=== PATIENT | female | born 1990 | race Caucasian/White ===

== ENCOUNTER 2024-12-06 10:11 | Outpatient (REF) | payer MEDICAID, SELFPAY ==
--- OUTSIDE RECORDS SUMMARY | 2024-12-06 11:25 | XMS_ITS | Encounter Summary ---
Author Organization [employer] Address [address] [place] [address] Care Team Providers Care Rotary Drier Name Role Phone Elvi Bal MD Primary Care Provider [phone] Encounter Details Date Type Department Care Team (Latest Contact Info) Description 12/06/2024 Travel Social History Tobacco Use Types Packs/Day Years Used Date Smoking Tobacco: Never Passive Smoke Exposure: Never Smokeless Tobacco: Never Depression Answer Date Recorded Patient Health Questionnaire-9 Score 8 12/06/2024 Patient Health Questionnaire-9 Score 8 12/06/2024 Last PHQ-9: Questionnaire Data Not on file 0 12/06/2024 Housing Stability Answer Date Recorded What is your housing situation today? I have bella josey 12/06/[address] you li ve. Do you have problems with any of the following? None of the above 12/06/2024 Food Insecurity Answer Date Recorded Within the past 12 months, y ou worried that your food would run out before you got money to buy more: Sometimes True 2024 Within the past 12 months,th e food you bought just didn't last and you didn't have enough money to get more: Sometimes True 12/06/2024 Transportation Answer Date Recorded In the past 12 months, has l ack of transportation kept you from medical appts, meetings, work or from getting things needed for daily living? Yes, it has kept me from non-medical meetings, work, or getting things that I need 12/06/2024 Utilities Answer Date Recorded In the past 12 months, has t he electric, gas, oil or water company threatened to shut off services in your home? Yes 12/06/2024 Depression Answer Date Recorded Patient Health Questionnaire-2 Score 2 12/06/2024 Comments Unknown Sex and Gender Information Value Date Recorded Sex Assigned at Female 05/09/2024 2:37 PM EDT Legal Sex Female 12:33 PM EDT Gender Identity Female 05/09/2024 2:37 PM EDT Sexual Orientation Straight 05/09/2024 2: 37 PM EDT documented as of this encounter Plan of Treatment Not on file documented as of this encounter Visit Diagnoses Not on filedocumented in this encounter Additional Health Concerns Assessment Noted Time PHQ-9 Depression Total Score: 8 12/07/19 9:39 AM EST documented as of this encounter Care Teams Rotary Drier Relationship Specialty Start Date End Date Elvi Bal MD [address] [place] [phone] PCP - General Family Medicine 12/06/24 documented as of this encounter
--- OUTSIDE RECORDS SUMMARY | 2024-12-06 11:25 | XMS_ITS | Encounter Summary ---
Author Organization [employer] Address [address] [facility] 7t [place] [address] Care Team Providers Care Assistant Professor Of Education Name Role Phone Unavailable Primary Care Provider Unavailabl e Reason for Visit * Reason Comments Pre-visit Planning SDOH unable to reach LVM Encounter Details Date Type Department Care Team ([facility] Contact Info) Description 11/29/2024 Patient Outreach [facility] [address] [place] [address] Elvi Bal MD [address] [place] [phone] Pre-visit Planning (SDOH unable to reach LVM ) Social History Tobacco Use Types Packs/Day Years Used Date Smoking Tobacco: Never Passive Smoke Exposure: Never Smokeless Tobacco: Never Comments Unknown Sex and Gender Information Value Date Recorded Sex Assigned at Female 05/09/2024 2:37 PM EDT Legal Sex Female 12:33 PM EDT Gender Identity Female 05/09/2024 2:37 PM EDT Sexual Orientation Straight 05/09/2024 2: 37 PM EDT documented as of this encounter Progress Notes * Adrianna Hart - 11/29/2024 9:38 AM EST CC Adrianna Novak placed outbound call to patient to complete pre-visit planning. No answer at this time. Patient name and were not confirmed. CC left voicemail requesting return call. Direct contactinformation provided. documented in this encounter Plan of Treatment Not on file documented as of this encounter Visit Diagnoses Not on filedocumented in this encounter
--- OUTSIDE RECORDS SUMMARY | 2024-12-06 11:25 | XMS_ITS | Encounter Summary ---
Author Organization [employer] Address [address] [facility] 7 [place] [address] Care Team Providers Care Biomedical Service Engineer Name Role Phone Elvi Bal MD Primary Care Provider Reason for Visit * Reason Comments New Patient Encounter Details Date Type Department Care Team (Latest Contact Info) Description 12/06/2024 9:00 AM EST Office Visit [facility] MEDICINE [address] [place] [address] [phone] Elvi Bal MD [address] [place] [address] [phone] Rheumatoid arthritis, involving unspecified site, unspecified whether rheumatoid factor present (CMS/HCC) (Primary Dx); Mild intermittent asthma without complication; Family planning; Screening examination for STI; Bipolar 2 disorder (CMS/HCC); Attention deficit hyperactivity disorder (ADHD), predominantly hyperactive type; PTSD (post-traumatic stress disorder) Social History Tobacco Use Types Packs/Day Years Used Date Smoking Tobacco: Never Passive Smoke Exposure: Never Smokeless Tobacco: Never Tobacco Cessation:Counseling Given: Not Answered Depression Answer Date Recorded Patient Health Questionnaire-9 Score 8 12/06/2024 Patient Health Questionnaire-9 Score 8 12/06/2024 Last PHQ-9: Questionnaire Data Not on file 0 12/06/2024 Housing Stability Answer Date Recorded What is your housing situation today? I have bella dwoling 12/06/[address] you li [...] PM EDT documented as of this encounter Last Filed Vital Signs Vital Sign Reading Time Taken Comments Blood Pressure 128/76 12/06/2024 9:07 AM EST Pulse 72 12/06/2024 9:07 AM EST Temperature 36.4 ??C (97.6 ??F) 12/06/2024 9:07 AM ES T Respiratory Rate 18 12/06/2024 9:07 AM EST Oxygen Saturation 99% 12/06/2024 9:07 AM EST Inhaled Oxygen Concentration - - Weight 87.6 kg (193 lb 3.2 oz) 12/06/2024 9:07 A M EST Height 167.6 cm (5' 6 ) 12/06/2024 9:07 AM EST Body Mass Index 31.18 12/06/2024 9:07 AM EST documented in this encounter Plan of Treatment Scheduled Orders Name Type Priority Associated Diagnoses Orde r Schedule Vitamin B12/Folate, Serum Panel Lab Routine Rheumatoid arthritis, involving unspecified site, unspecified whether rheumatoid factor present (CMS/HCC) Expected: 12/06/2024, Expires: 12/06/2025 CBC auto differential Lab Routine Rheumatoid arthritis, involving unspecified site, unspecified whether rheumatoid factor present (CMS/HCC) Expected: 12/06/2024 (Approximate), Expires: 12/06/2025 Comprehensive Metabolic Panel Lab Routine Rheumatoid arthritis, involving unspecified site, unspecified whether rheumatoid factor present ([facility]/HCC) Expected: 12/06/2024 (Approximate), Expires: 12/06/2025 TSH W/Reflex to FT4 Lab Routine Rheumatoid arthritis, involving unspecified site, unspecified whether rheumatoid factor present (CMS/HCC) Expected: 12/06/2024 (Approximate), Expires: 12/06/2025 Sed Rate by Modified [place] Lab Routine Rheumatoid arthritis, involving unspecified site, unspecified whether rheumatoid factor present ([facility]) Expected: 12/06/2024, Expires: 12/06/2025 C-reactive Protein Lab Routine Rheumatoid arthritis, involving unspecified site, unspecified whether rheumatoid factor present ([facility]) Expected: 12/06/2024 (Approximate), Expires: 12/06/2025 Rheumatoid Factor Lab Routine Rheumatoid arthritis, involving unspecified site, unspecified whether rheumatoid factor present ([facility]) Expected: 12/06/2024, Expires: 12/06/2025 HIV-1/2 Antigen and Antibodies, Fourth Generation, with Reflexes Lab Routine Screening examination for STI Expected: 12/06/2024 (Approximate), Expires: 12/06/2025 Hepatitis C Antibody with Reflex to HCV, RNA, Quantitative, Real-Time PCR Lab Routine Screening examination for STI Expected: 12/06/2024, Expires: 12/06/2025 RPR (Monitor) with Reflex to??Titer Lab Routine Screening examination for STI Expected: 12/06/2024, Expires: 12/06/2025 Chlamydia/N. Gonorrhoeae RNA, TMA, Urogenitial Microbiology Routine Screening examination for STI Expected: 12/06/2024 (Approximate), Expires: 12/06/2025 documented as of this encounter Visit Diagnoses Diagnosis Rheumatoid arthritis, involving unspecified site, unspecified whether rheumatoid factor present ([facility])- Primary Mild intermittent asthma without complication Family planning Other general counseling and advice for contraceptive management Screening examination for STI Bipolar 2 disorder ([facility]) Other bipolar disorders Attention deficit hyperactivity disorder (ADHD), predominantly hyperactive type PTSD (post-traumatic stress disorder) Posttraumatic stress disorder documented in this encounter Additional Health Concerns Assessment Noted Time PHQ-9 Depression Total Score: 8 12/07/19 25 9:39 AM EST documented as of this encounter Care Teams Biomedical Service Engineer Relationship Specialty Start Date End Date Elvi Bal MD [address] [place] [address] PCP - General Family Medicine 12/06/24 documented as of this encounter
--- OUTSIDE RECORDS SUMMARY | 2024-12-06 11:25 | XMS_ITS | Encounter Summary ---
Author Organization [employer] Address [address] [facility] 7t [place] [address] Care Team Providers Care Still Tender Name Role Phone Unavailable Primary Care Provider Unavailabl e Reason for Visit * Reason Onset Date Comments New patient appt. 11/26/2024 Encounter Details Date Type Department Care Team ([facility] st Contact Info) Description 11/26/2024 Telephone [facility] MEDICINE [address] [place], [place] [phone] Owen Colunga MD [address] [place], [place] [phone] New patient appt. Social History Tobacco Use Types Packs/Day Years Used Date Smoking Tobacco: Never Passive Smoke Exposure: Never Smokeless Tobacco: Never Comments Unknown Sex and Gender Information Value Date Recorded Sex Assigned at Female 05/09/2024 2:37 PM EDT Legal Sex Female 12:33 PM EDT Gender Identity Female 05/09/2024 2:37 PM EDT Sexual Orientation Straight 05/09/2024 2: 37 PM EDT documented as of this encounter Miscellaneous Notes * Telephone Encounter - Elizabeth Tello - 11/26/2024 11:58 AM EST ( 2x ) Outgoing call to pt to book New Patient appt. No answer. Left Message. * Telephone Encounter - Elizabeth Tello - 11/26/2024 11:56 AM EST ----- Message from Nate King MD sent at 11/26/2024 11:20 AM EST ----- Please schedule TELEPHOTO ENGINEER PCP mary't. Thanks documented in this encounter Plan of Treatment Not on file documented as of this encounter Visit Diagnoses Not on filedocumented in this encounter
--- OUTSIDE RECORDS SUMMARY | 2024-12-06 11:25 | XMS_ITS | Encounter Summary ---
Author Organization [employer] Address [address] [facility] 7t [place] [address] Care Team Providers Care Financial Services Officer Name Role Phone Elvi Bal MD Primary Care Provider [phone] Reason for Visit * Reason Onset Date Comments New Patient 07/18/2023 Encounter Details Date Type Department Care Team ([facility] st Contact Info) Description 07/18/2023 Telephone [facility] MEDICINE [address] [place], [place] [phone] Owen Colunga MD [address] [place] [address] New Patient Social History Tobacco Use Types Packs/Day Years Used Date Smoking Tobacco: Never Assessed Comments Unknown Sex and Gender Information Value Date Recorded Sex Assigned at Female 05/09/2024 2:37 PM EDT Legal Sex Female 12:33 PM EDT Gender Identity Female 05/09/2024 2:37 PM EDT Sexual Orientation Straight 05/09/2024 2: 37 PM EDT documented as of this encounter Miscellaneous Notes * Telephone Encounter - Lowell Hurd - 07/18/2023 12:36 PM EDT Pt has been transfer over to wait list for TOOL 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 EFFECTIVE SINCE 07/18/2023 documented in this encounter Plan of Treatment Not on file documented as of this encounter Visit Diagnoses Not on filedocumented in this encounter Care Teams Financial Services Officer Relationship Specialty Start Date End Date Elvi Bal MD [address] [place] [address] PCP - General Family Medicine 12/06/24 documented as of this encounter
--- OUTSIDE RECORDS SUMMARY | 2024-12-06 11:25 | XMS_ITS | Clinical Summary ---
Author Organization [employer] Address [address] [facility] 7t [place] [address] Care Team Providers Care Solar Installation Crew Supervisor Name Role Phone Elvi Bal MD Primary Care Provider [phone] Allergies Active Allergy Reactions Criticality Noted Date Comments Lactose Medium 01/08/2016 Other reaction(s): GI Intolerance Other reaction(s): GI Intolerance GI complaints and sometimes vomiting Medications * This document contains information received from the source organization and may not represent a complete record from that organization. fluticasone-salm eterol (Advair) 115-21 MCG/ACT inhaler Inhale 2 puffs in the morning and at bedtime. Rinse mouth with water after use to reduce aftertaste and incidence of candidiasis. Do not swallow. 12 g 2 05/09/20 24 2024 Active ibuprofen 800 MG tablet Take 1 tablet (800 mg) by mouth if needed in the morning and at bedtime for moderate pain for up to 10 days. 20 tablet 11/26/19 25 2024 Active predniSONE (Deltasone) 5 MG tablet TAKE 2 TABLETS BY MOUTH DAILY WITH BREAKFAST FOR 7 DAYS, THEN TAKE 1 TABLET DAILY FOR 7 DAYS, THEN TAKE 1/2 TABLET DAILY FOR 7 DAYS 11/26/19 Active Vit-Fe Fumarate-FA ( Vitamins) 28-0.8 MG tabletIndication s:Family Planning Take 1 tablet by mouth Once per day. 90 tablet 3 12/07/19 25 2025 Active albuterol 108 (90 Base) MCG/ACT inhaler Inhale 2 puffs every 4 (four) hours if needed for wheezing or shortness of breath. 18 g 3 12/07/19 25 2025 Active lamoTRIgine (LaMICtal) 100 MG tablet Take 1 tablet (100 mg) by mouth Once per day. 90 tablet 3 12/07/19 25 2025 Active amitriptyline (Elavil) 25 MG tablet Take 1 tablet (25 mg) by mouth if needed at bedtime for sleep. 90 tablet 3 12/07/19 25 Active amphetamine-dext roamphetamine (Adderall) 5 MG tabletIndication s:Attention deficit hyperactivity disorder (ADHD), predominantly hyperactive type Take 1 tablet (5 mg) by mouth 2 times daily. 60 tablet 12/07/19 25 Active clonazePAM (KlonoPIN) 0.5 MG tabletIndication s:PTSD (post-traumatic stress disorder) Take 1 tablet (0.5 mg) by mouth 2 times daily. 60 tablet 12/07/19 25 Active albuterol 108 (90 Base) MCG/ACT inhaler Inhale 2 puffs every 4 (four) hours if needed for wheezing or shortness of breath. 18 g 1 05/09/20 24 2024 Discontinued(R eorder (will not trigger notification to Pharmacy)) lamoTRIgine (LaMICtal) 25 MG tablet Take by mouth. 2024 Discontinued clonazePAM (KlonoPIN) 0.5 MG tablet Take 0.5 mg by mouth 2 times daily. 2024 Discontinued(R eorder (will not trigger notification to Pharmacy)) amitriptyline (Elavil) 10 MG tablet Take by mouth at bedtime. 2024 Discontinued(T herapy completed) amphetamine-dext roamphetamine (Adderall) 5 MG tablet Take 5 mg by mouth 2 times daily. 2024 Discontinued(R eorder (will not trigger notification to Pharmacy)) Vit-Fe Fumarate-FA ( Vitamins) 28-0.8 MG tabletIndication s:Family Planning Take 1 tablet by mouth Once per day. 90 tablet 3 07/01/20 24 2024 Discontinued(R eorder (will not trigger notification to Pharmacy)) predniSONE 5 MG tablet delayed-release Take 2 tablets (10 mg) by mouth with breakfast for 7 days, THEN 1 tablet (5 mg) with breakfast for 7 days, THEN 0.5 tablets (2.5 mg) with breakfast for 7 days. 25 tablet 11/26/19 25 2024 Discontinued(T herapy completed) amitriptyline (Elavil) 25 MG tablet Take 25 mg by mouth if needed at bedtime. 10/04/19 25 2024 Discontinued(R eorder (will not trigger notification to Pharmacy)) Active Problems Problem Noted Date Diagnosed Date Anxiety 12/06/2024 Bipolar disorder with moderate depression 2024 Skin infection 10/15/2024 Assessment & Plan (10/15/2024 2:57 PM EST): -Rx Doxycycline for likely early cellulitis and secondary benefit of ceoverage for possible atypical PNA. -Bactroban for possible impetigo. -ER precautions discussed. IBS (irritable bowel syndrome) 05/09/2024 Lactose intolerance 05/09/2024 Seronegative rheumatoid arthritis 05/09/2024 Varicose veins of both lower extremities 024 Bipolar 2 disorder 05/09/2024 PTSD (post-traumatic stress disorder) 05/09/2024 Moderate persistent asthma without complication 05/09/2024 Raynaud's phenomenon 05/09/2024 Vaccine reaction 12/08/2021 Overview (12/06/2024): Local reaction to PPSV23 vaccination. No angioedema or systemic symptoms. Ganglion cyst 05/14/2020 Kidney cysts 11/08/2019 Inflammatory arthritis 06/21/2019 Pain in joints 03/12/2019 Overview (12/06/2024): Exam more c/w myofacial pain, w/ diffuse non-articular tenderness greatest through the back and at GTB/ITB. 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 Varicose veins of both legs with edema 9 Overview (12/06/2024): H/o, s/p multiple vein stripping Continued pain in legs, worsening over the day Likely contribution to other chronic MSK pain Raynaud's disease without gangrene 01/09/2019 Overview (12/06/2024): Likely primary raynauds w/ age of onset; agree w/ Dr Mejia for low lifetime risk for other associated CTD. Exam today noted for moderate nailbed capillarization. Periodic headache syndrome, not intractable 12/31 Venous insufficiency 08/14/2018 Gestational diabetes mellitus (GDM) 07/14/2017 Moderate asthma 02/22/2016 Overview (12/06/2024): No admissions H/O steroids during winter Encounters * This document contains information received from the source organization and may not represent a complete record from that organization. Date Type Department Care Team Description 12/06/2024 9:00 AM EST Office Visit [facility] MEDICINE [address] [place] [phone] Elvi Bal MD Rheumatoid arthritis, involving unspecified site, unspecified whether rheumatoid factor present (CMS/HCC) (Primary Dx); Mild intermittent asthma without complication; Family planning; Screening examination for STI; Bipolar 2 disorder (CMS/HCC); Attention deficit hyperactivity disorder (ADHD), predominantly hyperactive type; PTSD (post-traumatic stress disorder) 12/06/2024 Travel 11/29/2024 Patient Outreach [facility] & PEDS [address] [place], [place] [phone] Elvi Bal MD Pre-visit Planning (SDOH unable to reach [facility] ) 11/26/2024 10:20 AM EST Office Visit [facility] WALK[facility]IN CENTER [address] [place] [phone] Nate King MD Seronegative rheumatoid arthritis (CMS/HCC) (Primary Dx); Bipolar 2 disorder (CMS/HCC); PTSD (post-traumatic stress disorder) 11/26/2024 Telephone [facility] MEDICINE [address] [place] [phone] Owen Colunga MD New patient appt. 10/15/2024 2:00 PM EST Office Visit [facility] [address] [place] [phone] Mattie Peterson MD Skin infection (Primary Dx); Cough in adult 10/15/2024 Travel 10/03/2024 Telephone [facility] MEDICINE [address] [place] [address] Owen Colunga MD 09/23/2024 Telephone [facility] MEDICINE [address] [place], [place] [address] Owen Colunga MD from Last 3 Months Immunizations Name Administration Dates Next Due DTaP 11/06/2017 INFLUENZA INJECTABLE QUADRIV ALANT CCIIV4 MDCK Multi-dose vial 12/07/2021 Influenza Injectable Quadriv alant Preservative Free IIV4 MDCK 06/14/2019 Influenza injectable quadrivalent preservative f ree 06/20/2018 Influenza, Unspecified 08/04/2016,10/17/2012 Pneumococcal Polysaccharide PPSV23 12/07/2021 Tdap 07/12/2020,09/22/2012 Social History Tobacco Use Types Packs/Day Years Used Date Smoking Tobacco: Never Passive Smoke Exposure: Never Smokeless Tobacco: Never Tobacco Cessation:Counseling Given: Not Answered Depression Answer Date Recorded Patient Health Questionnaire-9 Score 8 12/06/2024 Patient Health Questionnaire-9 Score 8 12/06/2024 Last PHQ-9: Questionnaire Data Not on file 0 12/06/2024 Housing Stability Answer Date Recorded What is your housing situation today? I have bella dowling 12/06/[address] you li [...] Orientation Straight 05/09/2024 2: 37 PM EDT Last Filed Vital Signs Vital Sign Reading [...] Mass Index 31.18 12/06/2024 9:07 AM EST Plan of Treatment Health Maintenance Due Date Last Done Comments HIV Screening 1992 SDOH Screening 1992 Alcohol/Substance Use Screening 2004 Family Planning (PISQ) 2007 Hepatitis C Screening 2010 Hepatitis B Vaccines (1 of 3 - 19+ 3-dose series) 2011 Pap Smear 2013 Cervical Cancer Screening 2022 HPV/Cotest 2022 Pneumococcal Vaccine: Pediatrics (0 to 5 Years) and At-Risk Patients (6 to 49) Years) (2 of 2 - PCV) 12/07/2022 12/07/2021 COVID-19 Vaccine (1 - 2023- season) 2024 Influenza Vaccine (#1) 2024 , 06/14/2019, 06/20/2018, Additional history exists Depression Screening 12/06/2025 12/06/2024, 12/07/19 25 Tobacco Screening 12/06/2025 12/06/2024 DTaP/Tdap/Td Vaccines (4 - Td or Tdap) 07/12/2030 07/12/2020, 11/06/2017, 09/22/2012 Zoster Vaccines (1 of 2) 2042 RSV Patients and Patients Aged 60 years or older (1 - 1-dose 75+ series) 2067 HIB Vaccines Aged Out No longer eligi ble based on patient's age to complete this topic HPV Vaccines Aged Out No longer eligi ble based on patient's age to complete this topic Hepatitis A Vaccines Aged Out No long er eligible based on patient's age to complete this topic IPV Vaccines Aged Out No longer eligi ble based on patient's age to complete this topic Meningococcal Vaccine Aged Out No aundrea james eligible based on patient's age to complete this topic RSV under 20 months Aged Out No longe r eligible based on patient's age to complete this topic Rotavirus Vaccines Aged Out No longer eligible based on patient's age to complete this topic Procedures Procedure Name Priority Date/Time Associated Diagnosis Comments POCT INFLUENZA B (ID NOW RAPID MOLECULAR) Routine 10/15/2024 2:27 PM EST Cough in adult POCT INFLUENZA A (ID NOW RAPID MOLECULAR) Routine 10/15/2024 2:27 PM EST Cough in adult POCT RAPID COVID ANTIGEN Routine 10/15/2024 2:26 PM EST Cough in adult from Last 3 Months Results * Influenza B (ID NOW Rapid Molecular) (10/15/2024 2:27 PM EST) Influenza B Negative Negative, Indeterminate [facility] Swab 10/15/2024 2:27 PM EST us Mattie Peterson MD POINT OF CARE TEST ENTER/E DIT ORDERABLES Final Result [facility] [address] [place] [phone] * Influenza A (ID NOW Rapid Molecular) (10/15/2024 2:27 PM EST) Influenza A Negative Negative, Indeterminate [facility] Swab 10/15/2024 2:27 PM EST Mattie Peterson MD POINT OF CARE TEST ENTER/E DIT ORDERABLES Final Result [facility] [address] [place] [address] [phone] * POCT Rapid COVID Ag (10/15/2024 2:26 PM EST) Rapid COVID Ag Negative Swab 10/15/2024 2:26 PM EST Mattie Peterson MD POINT OF CARE TEST ENTER/E DIT ORDERABLES Final Result from Last 3 Months Insurance [facility] C3 Care Teams Solar Installation Crew Supervisor Relationship Specialty Start Date End Date Elvi Bal MD [address] [place] [phone] PCP - General Family Medicine 12/06/24
--- OUTSIDE RECORDS SUMMARY | 2024-12-06 11:25 | XMS_ITS | Encounter Summary ---
Author Organization [employer] Address [address] [facility] 7t [place] [address] Care Team Providers Care Skidder Driver Name Role Phone lEvi Bal MD Primary Care Provider [phone] Reason for Visit * Reason Comments Med Refill Encounter Details Date Type Department Care Team ([facility] st Contact Info) Description 06/06/2024 Refill [facility] [address] [place] [address] [phone] Nate King MD [address] [place] [phone] Social History Tobacco Use Types Packs/Day Years Used Date Smoking Tobacco: Never Smokeless Tobacco: Never Comments Unknown Sex [...] on filedocumented in this encounter Care Teams Skidder Driver Relationship Specialty Start Date End Date Elvi Bal MD [address] [place] [address] [phone] PCP - General Family Medicine 12/06/24 documented as of this encounter
--- OUTSIDE RECORDS SUMMARY | 2024-12-06 11:25 | XMS_ITS | Encounter Summary ---
Author Organization [employer] Address [address] [facility] 7t [place] [address] Care Team Providers Care Needle Leader Name Role Phone Unavailable Primary Care Provider Unavailabl e Encounter Details Date Type Department Care Team (Late st Contact Info) Description 11/26/2024 10:20 AM EST Office Visit [facility] [address] [place] [address] [phone] Nate King MD [address] [place] [address] Seronegative rheumatoid arthritis (CMS/HCC) (Primary Dx); Bipolar 2 disorder (CMS/HCC); PTSD (post-traumatic stress disorder) Social History Tobacco Use Types Packs/Day Years Used Date Smoking Tobacco: Never Passive Smoke Exposure: Never Smokeless Tobacco: Never Tobacco Cessation:Counseling Given: Not Answered Comments Unknown Sex and Gender Information Value Date Recorded Sex Assigned at Female 05/09/2024 2:37 PM EDT Legal Sex Female 12:33 PM EDT Gender Identity Female 05/09/2024 2:37 PM EDT Sexual Orientation Straight 05/09/2024 2: 37 PM EDT documented as of this encounter Last Filed Vital Signs Vital Sign Reading Time Taken Comments Blood Pressure 122/80 11/26/2024 10:55 AM EST Pulse 64 11/26/2024 10:55 AM EST Temperature 36.8 ??C (98.3 ??F) 11/26/2024 10:[address] Respiratory Rate 17 11/26/2024 10:55 AM EST Oxygen Saturation 100% 11/26/2024 10:55 AM EST Inhaled Oxygen Concentration - - Weight 86 kg (189 lb 8 oz) 11/26/2024 10:[address] Height 167.6 cm (5' 6 ) 11/26/2024 10:55 AM EST Body Mass Index 30.59 11/26/2024 10:55 AM EST documented in this encounter Progress Notes * Nate King MD - 11/26/2024 10:20 AM EST Subjective Patient ID: Amarilys Alvarenga is a 34 y.o. female. HPI 2 weeks ago Amarilys had recurrence of worsening pains in the joints of her fingers and feet that interferes with her ability to perform daily tasks. States it feels similar to rheumatoid arthritis flaresthat she has had in the past. States that she was taking methotrexate prescribed by store planner near [facility] where she used to live. She was a new patient here in May 2020 for, was referred to [facility] rheumatology,had appointment August 01, 2024, but states the doctor was not available for the appointment. I called [facility] rheumatology office, and they scheduled a review appointment in March and placed her on a recall list if that the patient cancels. Tried Tylenol, ibuprofen with little relief. She is requesting a course of prednisone which has helped the pain in the past when she was not taking methotrexate. Lives with 3 children. Not employed. LMP=2 weeks ago. Smoked in High School. Occasional EtOH. No Illicit substances. The following portions of the chart were reviewed this encounter and updated as appropriate: Tobacco Allergies Meds Problems Med Hx Surg Hx Fam Hx Review of Systems Constitutional: Negative for fever. Respiratory: Negative for shortness of breath. Cardiovascular: Negative for chest pain. Gastrointestinal: Negative for abdominal pain. Musculoskeletal: Positive for arthralgias. Skin: Negative for rash. Neurological: Negative for headaches. Objective Physical Exam Constitutional: Appearance: Normal appearance. HENT: Nose: Nose normal. Eyes: Conjunctiva/sclera: Conjunctivae normal. Pupils: Pupils are equal, round, and reactive to light. Cardiovascular: Rate and Rhythm: Normal rate and regular rhythm. Heart sounds: No murmur heard. Pulmonary: Effort: Pulmonary effort is normal. Breath sounds: Normal breath sounds. Musculoskeletal: General: Normal range of motion. Cervical back: No tenderness. Comments: Right wrist: Small, firm, mobile subcutaneous swelling radial volar surface, ? Ganglion cyst. Full range of motion of all fingers of both hands with no swelling, erythema, . Skin: Findings: No rash. Neurological: Mental Status: She is alert. Gait: Gait is intact. Psychiatric: Mood and Affect: Mood normal. Behavior: Behavior normal. Procedures Assessment/Plan Diagnoses and all orders for this visit: Seronegative rheumatoid arthritis (CMS/HCC Prescribed ibuprofen and low dose prednisone taper. I called [facility] rheumatology office, and they scheduled a review appointment in March and placed her on a recall list if that the patient cancels. Has new patient PCP appointment December 06. Bipolar 2 disorder (CMS/HCC) Was being seen at [facility] in [place] and is requesting to be switched to [facility] counselor and psychiatrist. I sent a message to our behavioral health department to contact patient. PTSD (post-traumatic stress disorder) As above Other orders - predniSONE 5 MG tablet delayed-release; Take 2 tablets (10 mg) by mouth with breakfast for 7 days, THEN 1 tablet (5 mg) with breakfast for 7 days, THEN 0.5 tablets (2.5 mg) with breakfast for 7 days. - ibuprofen 800 MG tablet; Take 1 tablet (800 mg) by mouth if needed in the morning and at bedtime for moderate pain for up to 10 days. documented in this encounter Plan of Treatment Not on file documented as of this encounter Visit Diagnoses Diagnosis Seronegative rheumatoid arthritis (CMS/HCC)- Primary Rheumatoid arthritis Bipolar 2 disorder (CMS/HCC) Other bipolar disorders PTSD (post-traumatic stress disorder) Posttraumatic stress disorder documented in this encounter
--- OUTSIDE RECORDS SUMMARY | 2024-12-06 11:25 | XMS_ITS | Encounter Summary ---
Author Organization [employer] Address [address] [facility] [address] 7[address] [place] [address] Care Team Providers Care In Home Baby Sitter Name Role Phone Elvi Bal MD Primary Care Provider [phone] Reason for Visit * Reason Comments Med Refill Encounter Details Date Type Department Care Team ([facility] st Contact Info) Description 08/05/2024 Refill [facility] [address] [place], [place] [phone] Elda Dorsey ANP [address] [place] [address] Pierced face infection Social History Tobacco Use Types Packs/Day Years [...] as of this encounter Visit Diagnoses Diagnosis 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
[2024-12-06 11:40] LABS: MANUAL DIFF FLAG NO
[2024-12-06 11:46] LABS: Basophils Percent Auto 0.6 % (0-2); Eosinophils Percent Auto 0.3 % (0-4); Hematocrit 38.7 % (37.0-47.0); Hemoglobin 12.8 g/dl (12.0-16.0); Imm Gran Abs Auto 0.02 X10*3/uL (0.00-0.03); Imm Gran Pct Auto 0.3 % (0.0-0.4); Lymphocytes Absolute Auto 1.7 X10*3/uL (1.2-4.9); Lymphocytes Percent Auto 23.9 % (20-40); Mean Corpuscular HGB Conc 33.1 g/dl (31.0-35.0); Mean Corpuscular Hemoglobin 31.1 pg (27.0-33.0); Mean Corpuscular Volume 93.9 fL (80.0-98.0); Mean Platelet Volume 9.8 fL (9.4-12.3); Monocytes Absolute Auto 0.5 X10*3/uL (0.1-1.2); Monocytes Percent Auto 6.6 % (2-11); Neutrophils Absolute Auto 4.9 x10*3/uL (2.0-8.3); Neutrophils Percent Auto 68.3 % (45-73); Platelet Count 232 X10*3/uL (160-400); Red Blood Count 4.12 X10*6/uL (4.20-5.50); Red Cell Distribution Width 13.2 % (11.0-16.0); White Blood Count 7.2 X10*3/uL (4.8-10.8)
[2024-12-06 12:04] LABS: Alanine Aminotransferase 14 U/L (0-31); Albumin Level 4.2 g/dL (3.5-5.0); Alkaline Phosphatase 45 U/L (39-117); Anion Gap 11 (12-20); Aspartate Amino Transferase 15 U/L (5-31); Bilirubin Total 1.1 mg/dL (0.0-1.0); Blood Urea Nitrogen 12 mg/dL (9-16); C Reactive Protein < 0.04 mg/dL (< or = 0.50); Calcium 9.1 mg/dL (8.4-10.2); Carbon Dioxide 25 mmol/L (22-29); Chloride 105 mmol/L (96-108); Estimated Glomerular Filt Rate > 60; Glucose Random 97 mg/dL (60-115); Potassium 3.8 mmol/L (3.3-5.1); Sodium 137 mmol/L (135-145); Total Protein 7.2 g/dL (6.5-8.0)
[2024-12-06 12:23] LABS: Erythrocyte Sedimentation Rate 6 MM/HR (0-20); TSH reflex Free T4 2.34 uIU/mL (0.32-4.0)
[2024-12-06 12:41] LABS: Rheumatoid Factor < 13.0 IU/mL (<15.0)
[2024-12-06 12:50] LABS: HIV AB/AG Nonreactive (Nonreactive); HIV Num 1 0.05 S/CO (0.00-0.99); ~Hepatitis C Antibody Nonreactive (Nonreactive)
[2024-12-06 12:57] LABS: Vitamin B12 203 pg/mL (200-900)
[2024-12-06 13:01] LABS: CT PCR NOT DETECTED (Not Detect.); NG PCR NOT DETECTED (Not Detect.)
[2024-12-08 18:58] LABS: RPR Rapid Plasma Reagin NON-REACTIVE (NON-REACTIVE)
== END 2024-12-06 10:12 | disposition home or self-care (01) ==
LOC: HO.HHCL 10:11
PROVIDERS: Visit Provider General Practice
DX: M06.9 Rheumatoid arthritis, unspecified (principal)
CPT/HCPCS: 80053; 82607; 82746; 84443; 85025; 85652; 86140; 86431; 86592; 86803; 87389; 87491; 87591

== ENCOUNTER 2025-04-15 16:35 | Outpatient (REF) | payer MEDICAID, SELFPAY ==
--- OUTSIDE RECORDS SUMMARY | 2025-04-15 16:51 | XMS_ITS | Encounter Summary ---
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 EFFECTIVE SINCE 07/18/2023 documented in this encounter Plan of Treatment Upcoming Encounters Date Type Department Care Team (Late st Contact Info) Description 07/10/2025 1:00 PM EDT Clinical Support [facility] [address] [place] [address] Xochitl Jones, RN documented as of this encounter Visit Diagnoses Not on filedocumented in this encounter Care Teams Woodwork Salvage Inspector Relationship Specialty Start Date End Date Elvi Bal MD [address] [place] [address] PCP - General Family Medicine 12/06/24 documented as of this encounter
[2025-04-17 12:21] LABS: Aminoclonazepam, GCMS Urine 38
[2025-04-17 12:22] LABS: Alprazolam, GCMS Urine NEGATIVE; Nordiazepam, GCMS Urine NEGATIVE
[2025-04-17 12:23] LABS: Alphahydroxytriazolam, GCMS Ur NEGATIVE; Lorazepam GCMS Urine NEGATIVE; Oxazepam, GCMS Urine NEGATIVE; Temazepam, GCMS Urine NEGATIVE
[2025-04-17 12:24] LABS: Alphahydroxymidazolam,GCMS Ur NEGATIVE; Flurazepam Metabolite,GCMS Ur NEGATIVE
== END 2025-04-15 16:36 | disposition home or self-care (01) ==
LOC: HO.HHCLNP 16:35
PROVIDERS: Visit Provider General Practice
DX: Z79.899 Other long term (current) drug therapy (principal)
CPT/HCPCS: 80346

== ENCOUNTER 2025-05-13 10:28 | Outpatient (REF) | payer MEDICAID, SELFPAY ==
--- OUTSIDE RECORDS SUMMARY | 2025-05-12 17:20 | XMS_ITS | Encounter Summary ---
Author Organization [employer] Address [address] [facility] [address] [place] [address] Care Team Providers Care Program Host Name Role Phone Elvi Bal MD Primary Care Provider [phone] Encounter Details Date Type Department Care Team ([facility] st Contact Info) Description 05/12/2025 5:20 PM EDT Office Visit [facility] [address] [phone] Encounter for screening examination for sexually transmitted infection (Primary Dx); Coccyx pain Social History Tobacco Use Types Packs/Day Years Used Date Smoking Tobacco: Never Passive Smoke Exposure: Never Smokeless Tobacco: Never Alcohol Answer Date Recorded How often do you have a drink containing alcohol ? 1 12/06/2024 How many drinks containing a lcohol do you have on a typical day when you are drinking? 0 12/06/2024 How often do you have six or more drinks on one occasion? 0 12/06/2024 Depression Answer Date Recorded Patient Health Questionnaire-9 [...] or getting things that I need 12/06/2024 Intimate Partner Violence Answer Date R ecorded Within the last year, have y ou been afraid of your partner or ex-partner? 1 12/06/2024 Within the last year, have y ou been humiliated or emotionally abused in other ways by your partner or ex-partner? 1 Within the last year, have y ou been kicked, hit, slapped, or otherwise physically hurt by your partner or ex-partner? 97 12/06/2024 Within the last year, have y ou been raped or forced to have any kind of sexual activity by your partner or ex-partner? 2 12/06/2024 Utilities Answer Date Recorded In the past 12 months, has t he electric, gas, oil or water company threatened to shut off services in your home? Yes 12/06/2024 Depression Answer Date Recorded Patient Health Questionnaire-2 Score 2 12/06/2024 Internet Access Answer Date Recorded Internet Access Q1 No 12/06/2024 Internet Access Q2 I cannot afford it;M y internet/Wi-Fi access is not consistent or reliable 12/06/2024 Comments Unknown Sex and Gender Information Value Date Recorded Sex Assigned at Female 05/09/2024 2:37 PM EDT Legal Sex Female 12:33 PM EDT Gender Identity Female 05/09/2024 2:37 PM EDT Sexual Orientation Straight 05/09/2024 2: 37 PM EDT documented as of this encounter Last Filed Vital Signs Vital Sign Reading Time Taken Comments Blood Pressure 132/86 05/12/2025 4:52 PM EDT Pulse 59 05/12/2025 4:52 PM EDT Temperature 36.7 C (98.1 F) 05/12/2025 4:52 PM EDT Respiratory Rate 17 05/12/2025 4:52 PM EDT Oxygen Saturation 100% 05/12/2025 4:52 PM EDT Inhaled Oxygen Concentration - - Weight 92 kg (202 lb 12.8 oz) 05/12/2025 4:52 PM EDT Height 167.6 cm (5' 6 ) 05/12/2025 4:52 PM EDT Body Mass Index 32.73 05/12/2025 4:52 PM EDT documented in this encounter Plan of Treatment Upcoming Encounters Date Type Department Care Team (Late st Contact Info) Description 05/19/2025 3:45 PM EDT Office Visit [facility] MED[facility] [address] [place] [phone] Elvi Bal MD [address] [place] [phone] 07/10/2025 1:00 PM EDT Clinical Support [address] [address] Xochitl Jones RN Scheduled Orders Name Type Priority Associated Diagnoses Orde r Schedule Trichomonas RNA (Urine/Vaginal) Lab Routine Encounter for screening examination for sexually transmitted infection Ordered: 05/12/2025 Syphilis Screen Lab Routine Encounter for screening examination for sexually transmitted infection Expected: 05/12/2025 (Approximate), Expires: 05/12/2026 HIV-1/2 Antigen and Antibodies, Fourth Generation, with Reflexes Lab Routine Encounter for screening examination for sexually transmitted infection Expected: 05/12/2025 (Approximate), Expires: 05/12/2026 Hepatitis B surface antigen, EIA Lab Routine Encounter for screening examination for sexually transmitted infection Expected: 05/12/2025 (Approximate), Expires: 05/12/2026 Hepatitis B Surface Antibody, Qualitative Lab Routine Encounter for screening examination for sexually transmitted infection Expected: 05/12/2025 (Approximate), Expires: 05/12/2026 Hepatitis C Antibody with Reflex to HCV, RNA, Quantitative, Real-Time PCR Lab Routine Encounter for screening examination for sexually transmitted infection Expected: 05/12/2025 (Approximate), Expires: 05/12/2026 Chlamydia/N. Gonorrhoeae RNA, TMA, Vagina Microbiology Routine Encounter for screening examination for sexually transmitted infection Ordered: 05/12/2025 XR Sacrum Coccyx 2+ Views Imaging Routine Coccyx pain Expected: 05/12/2025, Expires: 05/12/2026 documented as of this encounter Visit Diagnoses Diagnosis Encounter for screening examination for sexually transmitted infection- Primary Coccyx pain Other disorder of coccyx documented in this encounter Additional Health Concerns Assessment Noted Time PHQ-9 Depression Total Score: 8 12/07/19 25 9:39 AM EST documented as of this encounter Care Teams Program Host Relationship Specialty Start Date End Date Elvi Bal MD [address] [place] [phone] PCP - General Family Medicine 12/06/24 documented as of this encounter
--- NOTE | ~2025-05-13 | XR_ITS ---
EXAMINATION: XR SACRUM AND COCCYX CLINICAL INFORMATION: fall hx of coccyx fracture COMPARISON: None available. TECHNIQUE: AP and lateral views FINDINGS: No acute cortical disruption. No gross malalignment. Sclerosis in the left sacroiliac joint. No lytic or blastic lesions. Degenerative changes in the symphysis pubis. XR/XR sacrum coccyx min 2V IMPRESSION: No acute fracture. Electronically signed by: Kale Romo MD 05/13/2025 12:22 PM EDT
[2025-05-14 03:51] LABS: Syphilis Screen Nonreactive (Nonreactive)
[2025-05-14 04:08] LABS: HBS Num1 0.09 mIU/mL (0-7.99); HBsAGNum1 0.47 S/CO (0.00-0.99); HIV Num 1 0.05 S/CO (0.00-0.99); Hepatitis B Surface Antigen Negative (Negative); ~HepC Num1 0.08 S/CO (0.00-0.79); ~Hepatitis B Surface Antibody NONREACTIVE (Nonreactive); ~Hepatitis C Antibody Nonreactive (Nonreactive)
== END 2025-05-13 10:29 | disposition home or self-care (01) ==
LOC: HO.HHCX 10:28
PROVIDERS: PCP Nurse Practitioner; Visit Provider Nurse Practitioner
DX: Z01.84 Encounter for antibody response examination (principal); Z11.4 Encounter for screening for human immunodeficiency virus [HIV]; Z11.59 Encounter for screening for other viral diseases; M53.3 Sacrococcygeal disorders, not elsewhere classified
CPT/HCPCS: 36415; 72220; 86706; 86780; 86803; 87340; 87389

== ENCOUNTER → 2025-05-13 10:43 | Outpatient (BNV) | payer MEDICAID, SELFPAY | PROVIDERS: PCP Nurse Practitioner; Visit Provider Radiology Diagnostic Radiology | DX: M53.3 Sacrococcygeal disorders, not elsewhere classified (principal); W19.XXXA Unspecified fall, initial encounter | CPT/HCPCS: 72220 ==

== ENCOUNTER 2025-05-19 16:09 | Outpatient (REF) | payer MEDICAID, SELFPAY ==
--- OUTSIDE RECORDS SUMMARY | 2025-05-19 16:19 | XMS_ITS | Encounter Summary ---
Author Organization [employer] Address [address] [facility] [address] 7[address] [place] [address] Care Team Providers Care Last Remodeler Repairer Name Role Phone Elvi Bal MD Primary Care Provider [phone] Encounter Details Date Type Department Care Team (Latest Contact Info) Description 05/19/2025 Travel Social History Tobacco Use Types Packs/Day Years Used Date Smoking Tobacco: Never Passive Smoke Exposure: Never Smokeless Tobacco: Never Alcohol Use Standard Drinks/Week Comments Never 0 (1 standard drink = 0.6 oz pur e alcohol) Alcohol Answer Date Recorded How often do you have a drink containing alcohol ? 1 12/06/2024 How many drinks containing a lcohol do you have on a typical day when you are drinking? 0 12/06/2024 How often do you have six or more drinks on one occasion? 0 12/06/2024 Depression Answer Date Recorded Patient Health Questionnaire-9 Score 9 05/19/2025 Patient Health Questionnaire-9 Score 9 05/19/2025 Last PHQ-9: Questionnaire Data Not on file 0 05/19/2025 Housing Stability Answer Date Recorded What is [...] the past 12 months, has t he [employer], gas, oil or water company threatened to shut off services in your home? Yes 12/06/2024 Depression Answer Date Recorded Patient Health Questionnaire-2 Score 1 05/19/2025 Internet Access Answer Date Recorded Internet Access [...] PM EDT documented as of this encounter Functional Status * Over the past 2 weeks, how often have you been bothered by any of the following problems? Question Answer Date of Assessment Author Patient Health Questionnaire -2 Score 1 05/19/2025 4:05 PM EDT Parisa Beebe MA * Little interest or pleasure in doing things Answer Date of Assessment Author Not at all 05/19/2025 4:05 PM HECTORT Concha Beebe MA * Feeling down, depressed, or hopeless Answer Date of Assessment Author Several days 05/19/2025 4:05 PM Concha Castillo MA * Trouble falling or staying asleep, or sleeping too much Answer Date of Assessment Author More than half the days 05/19/2025 4:05 PM Parisa Valle MA * Feeling tired or having little energy Answer Date of Assessment Author More than half the days 05/19/2025 4:05 PM Parisa Valle MA * Poor appetite or overeating Answer Date of Assessment Author More than half the days 05/19/2025 4:05 PM Parisa Valle MA * Feeling bad about yourself - or that you are a failure or have let yourself or your family down Answer Date of Assessment Author Not at all 05/19/2025 4:05 PM Concha Castillo MA * Trouble concentrating on things, such as reading the newspaper or watching television Answer Date of Assessment Author More than half the days 05/19/2025 4:05 PM Parisa Valle MA * Moving or speaking so slowly that other people could have noticed? Or the opposite - being so fidgety or restless that you have been moving around a lot more than usual. Answer Date of Assessment Author Not at all 05/19/2025 4:05 PM Concha Castillo MA * Thoughts that you would be better off or hurting yourself in some way Answer Date of Assessment Author Not at all 05/19/2025 4:05 PM Concha Castillo MA * Patient Health Questionnaire-9 Score Answer Date of Assessment Author 9 05/19/2025 4:05 PM Concha Castillo MA * How difficult have these problems made it for you to do your work, take care of things at home, or get along with other people? Answer Date of Assessment Author Not difficult at all 05/19/2025 4:05 PM Parisa Hernández MA * Over the last 2 weeks, how often have you been bothered by any of the following problems? Question Answer Date of Assessment Author Feeling nervous, anxious, or on edge 2 05/19/2025 4:05 PM Parisa Castillo MA Not being able to stop or co ntrol worrying 2 05/19/2025 4:05 PM EDT Parisa Beebe MA Worrying too much about diff erent things 2 05/19/2025 4:05 PM EDT Parisa Beebe MA Trouble relaxing 2 05/19/2025 4:05 PM EDT Parisa Bradford MA Being so restless that it is hard to sit still 2 05/19/2025 4:05 PM EDT Parisa Beebe MA Becoming easily annoyed or irritable 2 05/19/2025 4:05 PM EDT Parisa Beebe MA Feeling afraid as if somethi ng awful might happen 2 05/19/2025 4:05 PM EDT Parisa Beebe MA SOPHIA-7 Total Score 14 05/19/2025 4:05 PM EDT Parisa Beebe MA documented as of this encounter Plan of Treatment Upcoming Encounters Date Type Department Care Team (Late st Contact Info) Description 07/10/2025 1:00 PM EDT Clinical Support [facility] [address] [place] [address] Xochitl Jones, LANETTE documented as of this encounter Visit Diagnoses Not on filedocumented in this encounter Additional Health Concerns Assessment Noted Time PHQ-9 Depression Total Score: 9 05/19/20 4:05 PM EDT documented as of this encounter Care Teams Last Remodeler Repairer Relationship Specialty Start Date End Date Elvi Bal MD [address] [place] [address] PCP - General Family Medicine 12/06/24 documented as of this encounter
[2025-05-19 18:15] LABS: MANUAL DIFF FLAG NO
[2025-05-19 18:20] LABS: Hematocrit 37.2 % (37.0-47.0); Hemoglobin 12.8 g/dl (12.0-16.0); Imm Gran Abs Auto 0.03 X10*3/uL (0.00-0.03); Imm Gran Pct Auto 0.3 % (0.0-0.4); Lymphocytes Absolute Auto 2.6 X10*3/uL (1.2-4.9); Mean Corpuscular HGB Conc 34.4 g/dl (31.0-35.0); Mean Corpuscular Hemoglobin 32.3 pg (27.0-33.0); Mean Corpuscular Volume 93.9 fL (80.0-98.0); NRBC Abs Auto 0.000 X10*3/uL (0.0-0.012); NRBC Pct Auto 0.0 /100WBC (0.0-0.2); Platelet Count 237 X10*3/uL (160-400); Red Blood Count 3.96 X10*6/uL (4.20-5.50); White Blood Count 8.7 X10*3/uL (4.8-10.8)
[2025-05-19 18:33] LABS: Hemoglobin A1C 101.1333 umol/L; Total Hemoglobin (HGBA1C) 3376.5337 umol/L
== END 2025-05-19 16:10 | disposition home or self-care (01) ==
LOC: HO.HHCL 16:09
PROVIDERS: PCP Nurse Practitioner; Visit Provider General Practice
DX: Z31.69 Encounter for other general counseling and advice on procreation (principal)
CPT/HCPCS: 36415; 82533; 83036; 84443; 85025

== ENCOUNTER 2025-05-26 12:17 | Outpatient (REF) | payer MEDICAID, SELFPAY ==
--- OUTSIDE RECORDS SUMMARY | 2025-05-26 13:33 | XMS_ITS | Encounter Summary ---
Author Organization [employer] Address [address] [place] [phone] Care Team Providers Care Director Corporate Name Role Phone Elvi Bal MD Primary Care Provider [phone] Reason for Visit * Reason Onset Date Comments New Patient 07/18/2023 Encounter Details Date Type Department Care Team (Late Contact Info) Description 07/18/2023 Telephone [facility] [address] [place] [address] Owen Colunga MD [address] [place] [address] New Patient Social History Tobacco Use Types [...] been transfer over to wait list for AMPOULE WASHING MACHINE OPERATOR. EFFECTIVE SINCE 07/18/2023 documented in this encounter Plan of Treatment Upcoming Encounters Date Type Department Care Team (Late Contact Info) Description 07/10/2025 1:00 PM EDT Clinical Support [facility] [address] [place] [address] Xochitl Jones, RN documented as of this encounter Visit Diagnoses Not on filedocumented in this encounter Care Teams Director Corporate Relationship Specialty Start Date End Date Elvi Bal MD [address] [place] [address] PCP - General Family Medicine 12/06/24 documented as of this encounter
[2025-05-27 06:04] LABS: Follicle Stimulating Hormone 7.5 mIU/mL
[2025-05-30 13:24] LABS: Testosterone-Albumin 4.7 g/dL (3.6-5.1); Testosterone-Bioavailable 3.3 ng/dL (0.5-8.5); Testosterone-Free 1.5 pg/mL (0.2-5.0); Testosterone-SHBG 32 nmol/L (17-124); Testosterone-Total 13 ng/dL (2-45)
[2025-06-06 03:38] LABS: Estradiol Ultra Sensitive 33 pg/mL
== END 2025-05-26 12:18 | disposition home or self-care (01) ==
LOC: HO.HHCL 12:17
PROVIDERS: PCP Nurse Practitioner; Visit Provider Family Medicine
DX: N92.0 Excessive and frequent menstruation with regular cycle (principal)
CPT/HCPCS: 36415; 82670; 83001; 83002; 84403

== ENCOUNTER 2025-07-11 14:46 | Outpatient (REF) | payer MEDICAID, SELFPAY ==
--- NOTE | ~2025-07-11 | US_ITS ---
EXAMINATION: US PELVIS, COMPLETE CLINICAL INFORMATION: Patient with menorrhagia of 2 week duration, worsening for 6 months. COMPARISON: None TECHNIQUE: Transabdominal and transvaginal imaging was performed. FINDINGS: LMP: 06/15/2025 Uterus is anteverted , measuring 7.7 x 4.8 x 5.7 cm. No focal uterine lesion. Endometrial thickness 1.1 cm. Right ovary measures 3.3 x 1.8 x 2.7 cm. Volume 7.9 mL. Vascular flow are demonstrated. Left ovary measures 3.4 x 1.8 x 3.1 cm. Volume 9.9 mL. Vascular flow demonstrated. No free fluid in the cul-de-sac. US/US pelvic and transvaginal IMPRESSION: Unremarkable pelvic ultrasound. Electronically signed by: Boubacar Cali MD 07/11/2025 04:07 PM EDT
== END 2025-07-11 14:47 | disposition home or self-care (01) ==
LOC: HO.HMGCX 14:46
PROVIDERS: PCP General Practice; Visit Provider Family Medicine
DX: N92.0 Excessive and frequent menstruation with regular cycle (principal)
CPT/HCPCS: 76830; 76856

== ENCOUNTER → 2025-07-11 15:16 | Outpatient (BNV) | payer MEDICAID, SELFPAY | PROVIDERS: PCP General Practice; Visit Provider Radiology Diagnostic Ultrasound | DX: N92.1 Excessive and frequent menstruation with irregular cycle (principal) | CPT/HCPCS: 76830; 76856 ==